=== PATIENT | male | born 1980 | race Hispanic/Latino ===

== ENCOUNTER 2020-02-08 17:18 | Emergency (ER) | payer OTHER, SELFPAY ==
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
[2020-02-08 17:24] VITALS: BP 139/93; PULSE 68; RESP 18; TEMP 37.2; O2SAT 100
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
[2020-02-08] MEDS: ACETAMINOPHEN 500 MG TABLET 1000 MG PO (18:50)
[2020-02-08] MEDS: KETOROLAC (*BKC) 60 MG/2 ML VIAL 30 MG IM (18:51)
[2020-02-08 18:59] VITALS: BP 145/89; PULSE 86; RESP 17; O2SAT 99
== END 2020-02-08 19:11 | disposition home or self-care (01) ==
PROVIDERS: Emergency Provider Emergency Medicine; PCP Registered Nurse
DX: S46.911A Strain of unspecified muscle, fascia and tendon at shoulder and upper arm level, right arm, initial encounter (principal); S29.9XXA Unspecified injury of thorax, initial encounter; V43.52XA Car driver injured in collision with other type car in traffic accident, initial encounter
CPT/HCPCS: 71101; 73080; 96372; 99284; A9270; J1885

== ENCOUNTER 2020-04-14 16:03 | Outpatient (CLI) | payer OTHER, SELFPAY ==
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
== END 2020-04-14 16:04 | disposition home or self-care (01) ==
PROVIDERS: PCP Registered Nurse
DX: M25.512 Pain in left shoulder (principal)
CPT/HCPCS: 73030

== ENCOUNTER 2021-02-21 16:05 | Outpatient (CLI) | payer SELFPAY ==
[2021-02-21 16:29] LABS: Basophils Percent Auto 0.2 % (0.2-1.2); Eosinophils Absolute Auto 0.2 K/mm3 (0-0.3); Eosinophils Percent Auto 4.5 % (0-4.4); Hematocrit 44.3 % (42.0-52.0); Hemoglobin 14.8 g/dL (14.0-18.0); Immature Granulocyte Absolute 0.01 K/mm3 (0.00-0.031); Immature Granulocyte Percent A 0.2 % (0-0.5); Lymphocytes Absolute Auto 1.46 K/mm3 (0.9-3.2); Lymphocytes Percent Auto 28.6 % (18.3-44.2); Mean Corpuscular HGB Conc 33.4 g/dl (32-36); Mean Corpuscular Hemoglobin 28.6 pg (26-34); Mean Corpuscular Volume 85.7 fl (80-100); Mean Platelet Volume 9.5 fl (7.4-10.4); Monocytes Absolute Auto 0.6 K/mm3 (0.1-0.6); Monocytes Percent Auto 11.5 % (2.6-8.5); Neutrophils Absolute Auto 2.8 K/mm3 (1.3-6.7); Platelet Count Result 279 k/mm3 (150-375); Red Blood Count 5.17 M/mm3 (4.6-6.20); White Blood Count 5.1 K/mm3 (4.5-10.0)
[2021-02-21 16:43] LABS: Alanine Aminotransferase 27 U/L (4-50); Albumin Level 4.4 g/dL (3.5-5.1); Alkaline Phosphatase 68 U/L (38-126); Amylase 117 U/L (30-110); Anion Gap 7 mmol/L (8-16); Aspartate Amino Transferase 30 U/L (17-59); Bilirubin,Total 0.3 mg/dL (0.2-1.3); Blood Urea Nitrogen 13 mg/dL (9-20); Calcium 9.2 mg/dL (8.4-10.2); Carbon Dioxide 31 mmol/L (22-30); Chloride 102 mmol/L (98-107); Cholesterol 163 mg/dL (0-200); Estimated Glomerular Filt Rate > 60; Glucose 112 mg/dL (65-110); HDL Direct 37 mg/dL; Lipase 160 U/L (23-300); Potassium 3.7 mmol/L (3.4-5.0); Sodium 140 mmol/L (137-145); Triglycerides 88 mg/dL (<150)
[2021-02-21 16:55] LABS: LDL Cholesterol Direct 93 mg/dL
[2021-03-16 15:23] LABS: HIV 1/2 Ab P24 Ag Result Negative (Negative)
== END 2021-02-21 16:06 | disposition home or self-care (01) ==
LOC: ANHLAB 16:07
PROVIDERS: PCP Registered Nurse; Visit Provider Registered Nurse
DX: Z00.00 Encounter for general adult medical examination without abnormal findings (principal); E78.2 Mixed hyperlipidemia; K92.1 Melena; R10.13 Epigastric pain
CPT/HCPCS: 36415; 80053; 80061; 82150; 83690; 85025; 86703; G0432

== ENCOUNTER 2022-01-04 17:32 | Emergency (ER) | payer SELFPAY ==
--- NOTE | ~2022-01-04 | CT_ITS ---
EXAMINATION: CT abdomen pelvis w con DATE: 01/04/2022 21:48 INDICATION: Left lower quadrant abdominal pain and rectal bleeding. TECHNIQUE: Computed tomography (CT) of the abdomen and pelvis was performed with 100 mL Omnipaque-350 intravenous contrast. Automated exposure control and iterative reconstruction technique were employe d. The dose-length product was 666.20 mGy-cm. COMPARISON: None FINDINGS: Mild dependent atelectasis in the bilateral lower lobes. Heart size is normal. No pericardial or pleu ral effusion. Minimal bilateral gynecomastia. Liver, gallbladder, spleen, pancreas, bilateral adrenal glands and kidneys are normal. Bowels including the appendix are normal. Bladder is normal. Mild pro statomegaly measuring 4.0 x 2.7 cm. No free intraperitoneal gas or fluid. No pathologically enlarged abdominal or pelvic lymphadenopathy. Likely physiologic mild anterior wedging at T11 and T12. IMPRESSION: 1. No acute intra-abdominal/pelvic process. Reviewed, dictated and finalized at location A.
[2022-01-04 18:13] VITALS: BP 130/86; PULSE 74; RESP 16; TEMP 36.6; O2SAT 99
[2022-01-04 20:56] LABS: Basophils Percent Auto 0.4 % (0.2-1.2); Eosinophils Absolute Auto 0.6 K/mm3 (0-0.3); Eosinophils Percent Auto 6.3 % (0-4.4); Hematocrit 44.3 % (42.0-52.0); Hemoglobin 14.9 g/dL (14.0-18.0); Immature Granulocyte Absolute 0.05 K/mm3 (0.00-0.031); Immature Granulocyte Percent A 0.5 % (0-0.5); Lymphocytes Absolute Auto 2.45 K/mm3 (0.9-3.2); Mean Corpuscular HGB Conc 33.6 g/dl (32-36); Mean Corpuscular Hemoglobin 28.6 pg (26-34); Mean Platelet Volume 9.5 fl (7.4-10.4); Monocytes Absolute Auto 0.7 K/mm3 (0.1-0.6); Monocytes Percent Auto 7.4 % (2.6-8.5); Neutrophils Absolute Auto 5.6 K/mm3 (1.3-6.7); Neutrophils Percent Auto 59.4 % (45.5-73.1); Platelet Count Result 300 k/mm3 (150-375); Red Blood Count 5.21 M/mm3 (4.6-6.20); White Blood Count 9.4 K/mm3 (4.5-10.0)
--- NOTE | 2022-01-04 21:04 | ED.ABDPAIN ---
HPI - Abdominal Pain General Chief Complaint: Abdominal Pain Stated Complaint: abd pain Time Seen by Provider: 01/04/22 19:37 Source: patient and family Mode of arrival: ambulatory Limitations: language barrier History of Present Illness HPI narrative: Patient is a 41-year-old male who presents the ED with report of lower abdominal pain and rectal bleeding. Patient is primarily Tristanian-speaking. Family member at bedside assisted in providing information. 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 Patient reports he has been dealing with intermittent lower abdomen pain for the last 3 years, but had worsening pain in his lower abdomen since 2 AM this morning. Typically pain exacerbated by spicy foods. He also reports 1 episode of bright red rectal bleeding today, with formed stool and blood mixed in. No pain with bowel movement. No known history of hemorrhoids. No previous colonoscopy. No melena, nausea, vomiting, recent constipation, fevers, urinary symptoms. Related Data Home Medications Medication Instructions Recorded Confirmed No Home Medications 01/04/22 01/04/22 Allergies Allergy/AdvReac Type Severity Reaction Status Date / Time No Known Allergies Allergy Verified 01/04/22 18:13 Review of Systems Review of Systems: CONSTITUTIONAL: Denies fever, chills, or sweats. CARDIOVASCULAR: Denies chest pain. RESPIRATORY: Denies dyspnea. GASTROINTESTINAL: Reports lower abdominal pain, rectal bleeding. Denies melena, constipation, nausea, vomiting, or diarrhea. GENITOURINARY: Denies dysuria or hematuria. All systems reviewed & are unremarkable except as noted in HPI and below PMFSH Past Medical History Medical History No pertinent past medical history Surgical History Surgical History No pertinent past surgical history Social History Social History Smoking status: Never smoker Alcohol intake: never Substance use: never Gender identity (if verbalized by the patient): Male Exam Narrative: GENERAL: Well appearing, well-nourished, non-toxic, in no acute distress. HEAD: Normocephalic, atraumatic. NECK: Supple. No adenopathy, no masses. RESPIRATORY: Airway patent, respirations nonlabored. Clear to auscultation bilaterally, no rales, rhonchi, wheezing. CARDIOVASCULAR: Regular rate and rhythm without murmurs, rubs, or gallops. Peripheral pulses 2+ and equal bilaterally. ABDOMINAL: Soft, mild tenderness palpation over suprapubic region and left lower quadrant. Nondistended, no hepatosplenomegaly. Normoactive BS. RECTAL: Normal tone. Brown stool on SIVA. Guaiac negative. Small external hemorrhoid noted to 12 oclock position of anus, no swelling, clots, or evidence of thrombosis. No significant internal hemorrhoids palpated on SIVA. MUSCULOSKELETAL: Moves all extremities. Strength/ROM intact without gross deformities. SKIN: Warm, dry, normal color. No rashes. NEURO: A&O X3. Speech clear. Cranial nerves II-XII grossly intact. Steady gait. No ataxic movements. PSYCHIATRIC: Appropriate mood and affect. Normal interaction. Course Vital Signs Vital signs: Vital Signs Temperature 97.8 F 01/04/22 18:13 Pulse Rate 74 01/04/22 18:13 Respiratory Rate 16 01/04/22 18:13 Blood Pressure 130/86 01/04/22 18:13 Pulse Oximetry 99 01/04/22 18:13 Temperature 97.8 F 01/04/22 18:13 Pulse Rate 82 01/04/22 23:42 Respiratory Rate 16 01/04/22 23:42 Blood Pressure 113/68 01/04/22 23:42 Pulse Oximetry 98 01/04/22 23:42 MDM - Abdominal Pain MDM Narrative Medical decision making narrative: Patient presented to ED with report of lower abdominal pain and 1 episode of bright red rectal bleeding. Vital signs stable upon arrival. CBC without leukocytosis or anemia. CMP unremarkable. UA without signs of infection. CT s
[2022-01-04 21:06] LABS: Alanine Aminotransferase 55 U/L (6-50); Albumin Level 4.6 g/dL (3.5-5.1); Alkaline Phosphatase 80 U/L (38-126); Anion Gap 13 mmol/L (8-16); Aspartate Amino Transferase 37 U/L (17-59); Bilirubin,Total 0.3 mg/dL (0.2-1.3); Blood Urea Nitrogen 18 mg/dL (9-20); Carbon Dioxide 27 mmol/L (22-30); Chloride 100 mmol/L (98-107); Estimated CRCL calculation 81 ml/min; Estimated Glomerular Filt Rate > 60; Glucose 106 mg/dL (65-110); Lipase 128 U/L (23-300); Potassium 3.6 mmol/L (3.4-5.0); Sodium 140 mmol/L (137-145)
[2022-01-04] MEDS: SODIUM CHLORIDE 0.9% IV 1,000 ML 999 ML IV CONT (21:15)
[2022-01-04 23:08] LABS: Appearance Urine Clear (Clear); Bilirubin Urine Negative (Negative); Color Urine Yellow (Yellow); Glucose Urine UA Negative (Negative); Ketones Urine Negative (Negative); Leukocyte Esterase Ur Negative LEU/UL (Negative); Nitrate Urine Negative (Negative); Protein Urine Negative (Negative); Specific Grav Ur <= 1.005 (1.001-1.035); Urobilinogen Urine 0.2 mg/dL (<2.0)
[2022-01-04 23:15] LABS: Bacteria Urine Trace /hpf; Mucus Urine Rare /lpf; RBC Urine 0-2 /hpf (0-2); Squamous Epithelial Cell Urine Rare /hpf (Few); WBC Urine 0-3 /hpf
[2022-01-04 23:16] LABS: Add Urine Microscopic? YES; Blood Urine Trace (Negative)
[2022-01-04 23:42] VITALS: BP 113/68; PULSE 82; RESP 16; O2SAT 98
== END 2022-01-04 23:43 | disposition home or self-care (01) ==
PROVIDERS: Physician Assistant; Emergency Provider Emergency Medicine; PCP Registered Nurse
DX: R10.30 Lower abdominal pain, unspecified (principal); K64.4 Residual hemorrhoidal skin tags
CPT/HCPCS: 36415; 74177; 80053; 81001; 83690; 85025; 96361; 96374; 99284; J0131; J7030; Q9967

== ENCOUNTER 2024-08-06 12:43 | Emergency (ER) | payer SELFPAY ==
--- NOTE | ~2024-08-06 | XR_ITS ---
XR abdomen/kub 1V 08/06/2024 13:33 INDICATION: Abdominal distention and discomfort TECHNIQUE: KUB COMPARISON: None FINDINGS: Bowel gas pattern is normal. There is no evidence of free air, mass, organomegaly, ascites or obstruction. No abnormal calculi are seen. The bones appear intact. IMPRESSION: 1: No acute abdominal abnormality identified. Reviewed, dictated and finalized at location A.
[2024-08-06 13:02] VITALS: BP 115/71; PULSE 70; RESP 14; TEMP 36.9; O2SAT 100
--- NOTE | 2024-08-06 13:07 | ED.MALEGU ---
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 No concern for STI. Denies any penile discharge. Last bowel movement was yesterday and normal but he states he suffers from constipation. Has had a hemorrhoidectomy 1 month ago but still feels as though he has has hemorrhoids. No history of diabetes. Denies any fever, chills, body aches, nausea, vomiting, or diarrhea. No history of prostatitis. Denies any testicle pain, penile discharge, or painful ejaculation. Related Data Allergies Allergy/AdvReac Type Severity Reaction Status Date / Time No Known Allergies Allergy Verified 08/06/24 13:25 Review of Systems Review of Systems: Pertinent positives per HPI. Patient denies any fever, chills, rash, headache, visual changes, dizziness, cough, runny nose, sore throat, shortness of breath, chest pain, palpitations, nausea, vomiting, diarrhea, constipation, abdominal pain PMFSH Past Medical History Medical History No pertinent past medical history Surgical History Surgical History No pertinent past surgical history Social History Social History Smoking status: Never smoker Alcohol intake: never Substance use: never Living arrangements: with family Gender identity (if verbalized by the patient): Male Comments At the time of my signature, I reviewed and agree with the nursing past medical, surgical, social, and family history. There is no relevant family history pertinent to the patient complaint. Exam Narrative: General: Well-developed, well nourished, in no apparent distress. Head: Normocephalic, atraumatic. Cardio: Regular rate and rhythm, s1 and s2 normal, no murmur appreciated. Resp: Clear to auscultation bilaterally, no rhonchi, rales, wheezing or rubs. Abdomen: Soft, pliable, bowel sounds present in all quadrants, non-tender to palpation, no organomegly, no CVAT tenderness. : Uncircumcised male, itchy bumps to with the volar aspect of the glans penis, denies any tenderness with palpation, no penile discharge, no scrotal lesions, bilateral descended testes without mass or tenderness. Course Course Emergency Course: Portions of this record may have been created with voice recognition software. Level of Care: Express Care Visit Vital Signs Vital signs: Vital Signs Temperature 36.9 C 08/06/24 13:02 Pulse Rate 70 08/06/24 13:02 Respiratory Rate 14 08/06/24 13:02 Blood Pressure 115/71 08/06/24 13:02 Pulse Oximetry 100 08/06/24 13:02 Oxygen Delivery Room Air 08/06/24 13:02 Temperature 36.9 C 08/06/24 13:02 Pulse Rate 70 08/06/24 13:02 Respiratory Rate 14 08/06/24 13:02 Blood Pressure 115/71 08/06/24 13:02 Pulse Oximetry 100 08/06/24 13:02 Oxygen Delivery Room Air 08/06/24 13:02 Vital signs reviewed MDM - Male Genitourinary MDM Narrative Medical decision making narrative: At the time of visit patient is resting comfortably on the exam table. Patient appears to be nontoxic. Labs: Dipstick is negative for any sign of blood, infection, glucose, or protein. Bedside glucose test was 117-nonfasting Diagnostics: KUB x-ray was performed to rule out constipation Plan: I suspect patient has dermatitis to the glans penis likely due to poor hygiene, will send in prescription for some triamcinolone cream. Supportive measures were discussed with the patient and they voiced understanding discharge instructions and agrees to treatment plan. Return precautions reviewed Differential Diagnosis Differential diagnosis: Likely urinary tract infection, priapism, urethritis, epididymitis, genital herpes simplex, prostatitis, acute retention of urine and inguinal hernia Lab Data Labs: Lab Results 08/06/24 08/06/24 Range/Units 13:07 13:19 POC Capillary Glucose 117 H (65-105) mg/dl POC Urine Color Yellow POC Urine Clarity Clear POC Urine pH 7.0 POC Ur Specif Central 1.015 POC Urine Protein Negative (Negative) POC Ur Glucose (UA) Negative (Negative) POC Urine Ketones Negative (Negative) POC Urine Blood Negative (Negative) POC Urine Nitrite Negative (Negative) POC Urine Bilirubin Negative (Negative) POC Urine Urobilinogen 0.2 POC U Leukocyte Esteras Negative (Negative) Discharge Plan Discharge Clinical Impression: Urinary frequency, Dermatitis Patient Disposition: Home Condition: Stable Instructions: Antibiotic Form, Urinary Urgency and Frequency (DC) Additional Instructions: Urinalysis is negative for any sign of infection, blood, protein, or glucose. Bedside glucose test was 117 X-ray of your abdomen is negative for any sign constipation, obstruction, kidney stone, or mass. We will send urine off for chlamydia, gonorrhea, and Trichomonas testing Avoid any sexual activity- includes oral, anal, or vaginal intercourse until you get results back and have completed any additional recommended treatment regimens. We will contact you if testing is positive and make sure your treatment was appropriate for the type of STI. Increase fluids and stay well hydrated Follow up with your PCP in 1 week if symptoms persist. Go to the emergency room if symptoms worsen El an?lisis de orina es negativo para cualquier signo de infecci?n, floridalma, prote?cliff o glucosa. La prueba de glucosa en la cama del paciente fue de 117. La radiograf?a abdominal es negativa para cualquier signo de estre?imiento, obstrucci?n, c?lculos renales o masas. Le enviaremos un an?lisis de orina para detectar clamidia, gonorrea y tricomonas. Evite cualquier actividad sexual, incluyendo relaciones sexuales orales, anales o vaginales, hasta que reciba los resultados y haya completado cualquier tratamiento adicional recomendado. Nos pondremos en contacto con usted si la prueba es positiva y nos aseguraremos de que baker tratamiento sea adecuado para el tipo de ITS. Aumente la ingesta de l?quidos y mant?ngase juli hidratado. Consulte con baker m?dico de cabecera en gin semana si los s?ntomas persisten. Acuda a urgencias si los s?ntomas empeoran. Patient Language: Chinese Prescriptions: New triamcinolone acetonide 0.1 % cream 1 applic topical BID 7 Days Qty: 30 0RF Follow-up/Referrals: UNKNOWN,DOCTOR [Primary Care Provider] - Time of Disposition: 13:49 Quality NIHSS Nursing Documentation ED NIHSS nursing documentation: reviewed/agree
[2024-08-06 13:09] LABS: EDUAAPPEAR Clear; EDUABILI Negative (Negative); EDUABLOOD Negative (Negative); EDUACOLOR1 Yellow; EDUAGLUCOSE Negative (Negative); EDUAKETONE Negative (Negative); EDUALEUKO Negative (Negative); EDUANITRATE Negative (Negative); EDUAPROTEIN Negative (Negative); EDUASPGRAVITY 1.015; EDUAUROBILI 0.2
[2024-08-06 13:22] LABS: Glucose Point of Care 117 mg/dl (65-105)
[2024-08-06 19:53] LABS: Trichomonas Vag PCR NOT DETECTED (NOT DETECTE)
[2024-08-06 20:15] LABS: Chlamydia trachomatis NOT DETECTED (NOT DETECTE); Neisseria gonorrhoeae PCR NOT DETECTED (NOT DETECTE)
== END 2024-08-06 14:18 | disposition home or self-care (01) ==
PROVIDERS: Emergency Provider Nurse Practitioner Family
DX: R35.0 Frequency of micturition (principal); N48.29 Other inflammatory disorders of penis; L30.9 Dermatitis, unspecified
CPT/HCPCS: 74018; 81003; 82948; 87491; 87591; 87661; 99213; G0463

== ENCOUNTER 2025-02-14 10:43 | Emergency (ER) | payer SELFPAY ==
[2025-02-14 10:51] VITALS: BP 122/80; PULSE 55; RESP 16; TEMP 36.6; O2SAT 100
--- NOTE | 2025-02-14 11:17 | ED.EXTPRO ---
HPI - Extremity Problem General Chief complaint: Extremity Problem,Nontraumatic Stated complaint: numbness in left & left leg, while sitting Time Seen by Provider: 02/14/25 10:45 Source: patient Mode of arrival: ambulatory Limitations: no limitations History of Present Illness HPI Narrative: Patient is a 44-year-old male that presents with numbness in left hand and left foot intermittently for 1 month. 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 Denies any pain or trauma. Also reports numbness to left hand at night. Denies any weakness in hand. Does do repetitive motion with hands and feet. Does report some low back pain after sitting all day. Patient states when he bends over he has a hard time standing back up due to stiffness. Denies any loss of bowel or bladder, balance issues or feeling uncoordinated. Related Data Allergies Allergy/AdvReac Type Severity Reaction Status Date / Time No Known Allergies Allergy Verified 02/14/25 10:57 Review of Systems Review of Systems: All systems reviewed & are unremarkable except as noted in HPI and below Constitutional: Constitutional: Denies body ache(s), Denies chills, Denies fatigue, Denies fever(s), Denies headache(s), Denies malaise and Denies weakness Eyes: Eyes: Denies blurry vision, Denies irritation and Denies loss of vision ENT: Denies otalgia, Denies headache(s), Denies nasal discharge, Denies sinus pain and Denies sore throat Cardiovascular: Cardiovascular: Denies chest pain, Denies irregular heart rhythm and Denies dyspnea Respiratory: Respiratory: Denies dyspnea Gastrointestinal: Gastrointestinal: Denies abdominal pain, Denies melena, Denies hematochezia, Denies diarrhea, Denies nausea and Denies vomiting Musculoskeletal: Musculoskeletal: Denies back pain, Denies myalgias and Denies arthralgias Integumentary/Breasts: Skin/Breast: Denies pruritus and Denies rash Neurologic: Denies headache(s), Denies loss of vision, Reports numbness and Denies weakness Psychiatric: Psychiatric: Reports no additional psychiatric complaints Endocrine: Endocrine: Denies fatigue PMFSH Past Medical History Medical History No pertinent past medical history Surgical History Surgical History No pertinent past surgical history Social History Social History Smoking status: Never smoker Alcohol intake: never Substance use: never Living arrangements: with family Gender identity (if verbalized by the patient): Male Comments At time of signature, agree with nursing past medical, surgical, social and family history. There is no relevant family history pertinent to the presenting complaint. Exam Const: General: cooperative, healthy appearing, comfortable, no acute distress and well nourished Nutritional Appearance: well nourished Orientation/consciousness: patient oriented x3 Limitations: no limitations HENMT: Head: normal to inspection, normocephalic and atraumatic Ears: hearing grossly normal bilaterally and external ears normal Face/Nose/Sinus: Normal external nose present, normal facial exam and face symmetric Face and sinus: normal facial exam and face symmetric Mouth: Yes lip normal Eyes: General: appearance normal, both eyes and all related structures Alignment and Position: alignment normal and position normal Periorbital: periorbital findings normal Eyelids: eyelids normal Pupils: Equal, round and reactive pupils present EOM: EOMs intact bilaterally Neck: Neck: normal visual inspection, full ROM and supple Chest: Chest palpation & inspection: normal inspection of the chest Resp: Effort & Inspection: normal respiratory effort and able to speak in complete sentences Auscultation: clear to auscultation bilaterally Cardio: Rate: regular rate Rhythm: regular rhythm Heart sounds: S1 normal heart sound present and S2 normal heart sound present GI: Inspection: normal to inspection Back/Spine/Pelvis: Cervical Spine: normal cervical lordosis and cervical ROM normal Thoracic/Lumbar Spine: thoracic and lumbar spine normal to inspection, thoraco-lumbar ROM normal, No paraspinal muscle tenderness, No thoracic spinal tenderness and No lumbar spinal tenderness Sacroiliac joints: bilaterally nontender Skin: General skin exam: normal color and no rashes or lesions noted Neuro: General: patient oriented x3 and moves all extremities Cranial nerves: Yes Equal, round and reactive pupils present Cognition (Neuro): normal cognition Speech: normal speech Gait exam (Neuro): Normal gait present Motor exam (neuro): 5/5 motor strength present throughout and Motor abnormalities not present Sensory Exam: normal sensation Extrem: General: normal to inspection, full ROM and no edema Psych: Appearance: grossly normal and well kempt Mental Status: mental status grossly normal Speech and movement: Normal speech and movement present Affect: normal affect Attitude: cooperative Thought process: Normal thought process present Course Course Emergency Course: Patient is aware of diagnosis, understands and agrees to treatment plan. Anticipatory guidance given. Patient agrees to follow-up as directed and is aware of reasons to seek care at the emergency department. Portions of this record may have been created with voice recognition software Level of Care: Express Care Visit Vital Signs Vital signs: Vital Signs Temperature 36.6 C 02/14/25 10:51 Pulse Rate 55 L 02/14/25 10:51 Respiratory Rate 16 02/14/25 10:51 Blood Pressure 122/80 02/14/25 10:51 Pulse Oximetry 100 02/14/25 10:51 Oxygen Delivery Room Air 02/14/25 10:51 Temperature 36.6 C 02/14/25 10:51 Pulse Rate 55 L 02/14/25 10:51 Respiratory Rate 16 02/14/25 10:51 Blood Pressure 122/80 02/14/25 10:51 Pulse Oximetry 100 02/14/25 10:51 Oxygen Delivery Room Air 02/14/25 10:51 Reviewed MDM - Extremity (Nontraumatic) MDM Narrative Medical decision making narrative: Patient has no active symptoms. Consistent with nerve impingement. Will trial steroids and then follow-up with PCP for potential physical therapy. Also recommended having added cushion to help with posture. Pt well hydrated appearing, in no respiratory distress, hemodynamically stable. Recommend supportive care. The patient is stable at time of discharge the clinical impression was discussed and the patient was given the opportunity to ask questions, which were addressed as completely as possible given the information available at present. Anticipatory guidance and return to care precautions were discussed and the importance of primary care follow-up was stressed and encouraged. The patient voiced understanding of the plan, indications to return, and the need for follow-up. Exam findings show no acute concerns or changes Patient is appropriate for outpatient treatment and follow-up. Differential Diagnosis Differential diagnosis: Likely other (Sciatica, other nerve impingement, carpal tunnel, overuse injury) Discharge Plan Discharge Clinical Impression: Numbness of left foot, Numbness and tingling in left hand, Nerve compression Patient Disposition: Home Condition: Stable Instructions: Carpal Tunnel Syndrome (DC), Lumbar Radiculopathy (ED) Additional Instructions: Take steroids in the morning with food, after completion take naproxen twice a day 1) Please establish with PCP within the next week. 2) If you have any worsening of symptoms or any other urgent concerns please go to the ER. 3) Please take medications as prescribed and continue taking your home medications as usual. 4) Please read and follow information included in discharge instructions. Patient Language: Montserratian Prescriptions: New prednisone 20 mg tablet 40 mg PO DAILY 5 Days Qty: 10 0RF Follow-up/Referrals: Morgan Carlisle MD [Physician, Family Practice] - 3 Days Referral Note: Establish care Stand Alone Forms: Work/School Release IP Time of Disposition: 11:42
== END 2025-02-14 11:47 | disposition home or self-care (01) ==
PROVIDERS: Emergency Provider Nurse Practitioner Family
DX: R20.0 Anesthesia of skin (principal)
CPT/HCPCS: 99213; G0463